=== PATIENT | female | born 1980 | race African-American/Black ===

== ENCOUNTER 2024-04-22 02:33 | Day surgery (SDC) | payer OTHER, SELFPAY ==
[2024-04-17 09:32] VITALS: BMI 31.4
--- NOTE | 2024-04-17 09:40 | PC.NURSE ---
Report to the Outpatient Waiting Room, entrance under the green pavilion located off [facility], at time _0615_ on date _[id number]_. Planned Procedure Time: _0815_.? Time changes happen often and if your time is changed the preop area will call you the afternoon before. - You and your visitor will be asked to self-screen and do not enter if you have any COVID symptoms. Please call surgeon if you need to reschedule. - A mask is optional within the hospital at this time. Patients may have clear liquids (water, carbonated beverages, clear teas, apple juice) until 3 hours prior to surgery with a maximum of 20 ounces. - No food from midnight until time of surgery and no smoking Take only the following medications with a SIP of water on the morning of surgery: _None___ DO NOT STOP ANY OF YOUR OTHER PRESCRIPTION MEDICATIONS PRIOR TO SURGERY EXCEPT THE FOLLOWING Medications to discontinue per physician ___None__ Date to take last dose Please no make-up, nail tanzanian, hairspray, perfume, deodorant, or body powder the day of surgery.? No jewelry (including any body piercings) or valuables the day of surgery, leave them at home.? Please take a shower or bath the night before, or the morning of, surgery with an antibacterial soap.? Wear comfortable, loose fitting clothing.? - Jewelry must be removed prior to entering the operating room.? Rings and piercings that are not removed may be cut off. - The hospital will not accept responsibility for valuables.? - Please leave all valuables, including medications, at home the day of surgery. If you are going home after surgery, a licensed auto crane driver must drive you home.? - NO public transportation without another adult if you receive anesthesia. - We recommend that an adult stay with you for 24 hours following discharge. - We also recommend that you do not drive, make important decision, drink alcoholic beverages, or take any drugs that were not prescribed by your health care provider for at least 24 hours after your discharge time. Follow any additional instructions given to you from your surgeon. Telephone instructions given to __Sam__and asked if any additional questions and then verbalized understanding. Patient advised to call surgeon office or pre surgery nurse liaison [phone] if any additional questions.
--- NOTE | 2024-04-21 09:16 | P.PNAN_ITS ---
Anes - Initial Pre Proc Eval Procedure: Operation Date: 04/22/24 08:15 Proposed Procedures p Hysteroscopy Dilation and Curettage - Merced Newton MD Date/Time: 04/21/24 09:16 Surgeon: Merced Newton MD Pre Op Diagnosis: Abnormal Uterine Bleeding Patient Data Age: 44 Gender: F Height: 1.68 m Weight: 88.2 kg Allergies Allergy/AdvReac Type Severity Reaction Status Date / Time codeine Allergy Severe Swelling Verified 04/22/24 06:20 of Lip/Tongue/Throat Home Medications Medication Instructions Recorded Confirmed Type No Home Medications 04/17/24 04/17/24 History Patient hx anesthesia problems: none Family hx anesthesia problems: none Results Review: All pre-operative results and documents have been reviewed as part of the pre- operative evaluation. [facility] Past Medical History Medical History (Updated 04/22/24 @ 07:19 by Merced Newton MD) (normal spontaneous vaginal delivery) x2 Spontaneous 16 weeks premature rupture of membranes Surgical History Surgical History (Updated 04/22/24 @ 07:19 by Merced Newton MD) Status post bilateral salpingectomy Status post tonsillectomy Status post uvulopalatopharyngoplasty Social History Social History Smoking status: Never smoker Alcohol intake: current Living arrangements: with family Spiritual care concerns: No Anes - Eval Final PreProcedure Day of Procedure 04/21/24 09:16 Patient weight: obese Heart: regular rate and rhythm Lungs: clear to auscultation and normal air movement Airway: Mallampati scale class II and other (small mass on hard palate) Neurological: alert and oriented Last oral intake: >/= 8 hours ASA classification: II Emergent: no Anesthetic plan: proceed Anesthesia type and monitoring: general GIVS and standard monitoring Results Review: All pre-operative results and documents have been reviewed as part of the pre-operative evaluation. Patient states previously using a CPAP until she had her tonsils removed, no longer requires CPAP Informed Consent: The patient's anesthetic plan and its attendant risks and benefits were discussed with the patient/family/POA. Questions were solicited and answers provided to the satisfaction of the patient/family/POA.
[2024-04-22 06:05] VITALS: BP 114/69; PULSE 59; RESP 16; TEMP 36.4; O2SAT 100
[2024-04-22 06:21] VITALS: BMI 30.9
[2024-04-22 06:35] LABS: BEDSIDEPREGUCG Negative (Negative)
--- NOTE | 2024-04-22 07:14 | WPDHPUPDATE1 ---
History and Physical Update Update Date/Time: 04/22/24 07:14 History and Physical has been reviewed, including an updated exam of the patient. There are NO changes in the patient's condition. Risks, benefits, and alternatives have been discussed and questions answered. Patient agrees to proceed with procedure.
[2024-04-22] MEDS: LACTATED RINGERS 1,000 ML 30 ML IV CONT (07:15)
--- NOTE | 2024-04-22 07:15 | PM.HPGS ---
History of Present Illness History of Present Illness Consent: Risks, benefits, and alternatives have been discussed and questions answered. Patient agrees to proceed with procedure. Chief complaint: Abnormal Uterine Bleeding Narrative: Higinio Henriquez is a 44 year old female with a change in her cycles over the past 6 months. Initially, she had 3 months without a cycle. Cycles and then were light but regular for several months. Starting March 17, the patient began bleeding and had continued to bleed for 3 weeks. Bleeding was heavy like the middle of her cycle. It was recommended to undergo D&C hysteroscopy to further evaluate. Risks of infection, bleeding, perforation, and possible pathology were reviewed. Pelvic ultrasound was performed and did reveal a [id number] mass. Patient voices understanding and agrees to proceed. Review of Systems Review of Systems: not repeated day of surgery; patient states no changes in status PMFSH Past Medical History Medical History (Updated 04/22/24 @ 07:19 by Merced Newton MD) (normal spontaneous vaginal delivery) x2 Spontaneous 16 weeks premature rupture of membranes Surgical History Surgical History (Updated 04/22/24 @ 07:19 by Merced Newton MD) Status post bilateral salpingectomy Status post tonsillectomy Status post uvulopalatopharyngoplasty Social History Social History Smoking status: Never smoker Alcohol intake: current Living arrangements: with family Spiritual care concerns: No Meds Home Medications and Allergies Home Medications Medication Instructions Recorded Confirmed Type No Home Medications 04/17/24 04/17/24 History Allergies Allergy/AdvReac Type Severity Reaction Status Date / Time codeine Allergy Severe Swelling Verified 04/22/24 06:20 of Lip/Tongue/Throat Vital Signs Vital Signs - 24 hr 04/22/24 06:05 Temperature 97.6 F Pulse Rate 59 L Respiratory Rate 16 Blood Pressure 114/69 Pulse Oximetry 100 Oxygen Delivery Room Air Exam Const: General: healthy appearing and alert Orientation/consciousness: patient oriented x3 Resp: Effort & Inspection: normal respiratory effort : External Female Exam: normal external appearance Speculum Exam - Vagina: normal appearance of the vagina and normal vaginal discharge Speculum Exam - Cervix: normal appearance of the cervix Bimanual exam- vagina & uterus: uterine size normal and consistency normal Bimanual Exam- Adnexa, other: normal adnexae and No adnexal tenderness Neuro: General: patient oriented x3 Assessment and Plan Assessment and plan (1) Menorrhagia: Code(s): N92.0 - Excessive and frequent menstruation with regular cycle Status: Acute Assessment and Plan: plan to proceed with D&C hysteroscopy
[2024-04-22] MEDS: ACETAMINOPHEN 500 MG TABLET 1000 MG PO (07:20)
--- NOTE | 2024-04-22 08:20 | P.OP_ITS ---
Procedure Note - Detailed Date of Procedure 04/22/24 Pre-op Diagnosis Abnormal Uterine Bleeding Post-op Diagnosis Same Procedure Performed D&C hysteroscopy with resection of polyps Surgeon Merced Newton MD Anesthesia MAC Findings uterus sounds to 8cm; 2 polyp like masses on the left and sidewall near the endocervical endometrial junction Description of Procedure The patient was taken to the operating room and placed under anesthesia in the dorsal lithotomy position. She was prepped and draped in the usual sterile fashion. [place] speculum was placed in the vagina and the cervix grasped anteriorly with a tenaculum. The uterus is sounded to 8cm. The diagnostic hysteroscope was placed. The small Aveta resection device was placed and under direct visualization the 2 masses are removed. The hysteroscope was then removed. The sharp OO curette is used to curette the endometrium until a good uterine cry was noted in all areas. Instruments are removed. Sponge, needle, and instrument counts are correct per the OR staff. The patient was taken to the recovery room in stable condition. Estimated Blood Loss 5 Drains No Packing No Pathology Yes ( Endometrial shavings and curettings) Complications No immediate complications Condition Stable Disposition PACU
[2024-04-22 08:25] VITALS: BP 103/61; PULSE 71; RESP 16; O2SAT 97
[2024-04-22 08:55] VITALS: BP 107/74; PULSE 63
[2024-04-22 09:21] VITALS: BP 116/74; PULSE 54
== END 2024-04-22 09:30 | disposition home or self-care (01) ==
PROVIDERS: Visit Provider Obstetrics & Gynecology Gynecology
PROC: 0U5B8ZZ Destruction of Endometrium, Via Natural or Artificial Opening Endoscopic (ICD-10-PCS; CPT 58563; principal; 2024-04-22 08:15)
DX: N92.0 Excessive and frequent menstruation with regular cycle (principal); N85.00 Endometrial hyperplasia, unspecified; E66.9 Obesity, unspecified; Z68.31 Body mass index [BMI] 31.0-31.9, adult
CPT/HCPCS: 58558; 88305; A9270; J1100; J2003; J2250; J2405; J2704; J3010; J7120